=== PATIENT | male | born 1935 | race African-American/Black ===

== ENCOUNTER 2021-01-04 17:03 | Inpatient (IN) | payer OTHER ==
[~2021-01-04] VITALS: Ht 152.4 cm; Wt 66.2 kg
[~2021-01-04 17:03] MED LIST: ASPIR 8181 MG PO; CARDURA4 MG PO; FOLIC ACID1 MG PO; METFORMIN HCL500 MG PO; METHOTREXATE 22.5 MG PO; NEURONTIN600 MG PO; PLAVIX 75 MG TA75 M1 PO; SIMVASTATIN40 MG PO; ZOFRAN ODT4 MG PO
[2021-01-04 17:30] VITALS: BP 123/59
[2021-01-04] MEDS ORDERED: COSENTYX P150 MG/11 PO (18:37)
[2021-01-04 18:49] LABS: HEMATOCRIT 37.6 % (42.0-52.0); HEMOGLOBIN 12.5 gm/dL (14.0-18.0); MCH 32.3 pg (26.0-34.0); MCHC 33.3 g/dL (28.0-37.0); MCV 97.2 fL (80.0-100.0); PLATELET COUNT 200 thou/uL (150-400); RBC 3.87 mil/uL (4.50-6.00); RDW 13.5 % (10.5-14.5); WBC 10.1 thou/uL (4.0-11.0)
[2021-01-04 18:55] LABS: ANION GAP 7 mmol/L (7-16); BUN 16 mg/dL (7-18); CALCIUM 8.6 mg/dL (8.5-10.1); CHLORIDE 107 mmol/L (98-107); CO2 27 mmol/L (21-32); CREATININE 1.2 mg/dL (0.7-1.3); GLUCOSE 98 mg/dL (74-106); POTASSIUM 4.4 mmol/L (3.5-5.1); SODIUM 141 mmol/L (136-145)
[2021-01-04 19:05] LABS: ALBUMIN 3.7 g/dL (3.4-5.0); SGOT 26 U/L (15-37); SGPT 28 U/L (16-63); TOTAL BILIRUBIN 0.6 mg/dL (0.2-1.0); TOTAL PROTEIN 7.3 g/dL (6.4-8.2); TROPONIN-I <0.06 ng/mL (<0.06)
[2021-01-04 19:06] LABS: ABSOLUTE NEUTROPHILS 4.6 thou/uL (1.4-8.2)
[2021-01-04 19:26] LABS: APTT 23.6 Seconds (24.5-32.8); INR 1.1; PROTIME 11.9 Seconds (10.5-12.1)
[2021-01-04 21:27] VITALS: BP 155/95
[2021-01-04 22:15] VITALS: BP 153/86
[2021-01-04 22:22] VITALS: BP 166/93
[2021-01-05 03:35] VITALS: BP 127/65
[2021-01-05 06:04] LABS: CHOLESTEROL 120 mg/dL (<200); HDL CHOLESTEROL 29 mg/dL (>40); LDL CHOLESTEROL 72 mg/dL (<100); TC:HDL 4.1 Ratio (Not establshd); TRIGLYCERIDE 97 mg/dL (<150); VLDL 19 mg/dL (<40)
[2021-01-05 06:05] LABS: SERUM ASSESSMENT Clear
[2021-01-05 07:09] LABS: GLYCOHEMOGLOBIN (HGB A1C) 5.3 % (4.8-5.6)
--- NOTE | 2021-01-05 07:18 | EKG ---
[address] [address] ELECTROCARDIOGRAM REPORT Name: LIANET COTA Tony Room #: 364-P ADM IN M.R.#: [id number] Admission: 01/04/21 Attend Phys: Miguel Davalos MD Discharge: Date of : 36 Report #: [id number] [facility] ED Test Date: 2021-01-04 Test Time: 17:08:27 Pat Name: LIANET COTA Department: Room: 364 Gender: M Supervisor Building Maintenance: : 1935 Requested By: Pradip Jimenez Order Number: [id number] MD: Claudio Mascorro Measurements Intervals [place] Rate: 75 P: 52 AR: 170 QRS: -6 QRSD: 86 T: 45 QT: 381 QTc: 426 Interpretive Statements Sinus rhythm Abnormal R-wave progression, early transition Compared to ECG 11/26/2015 22:07:22 No significant changes Electronically Signed On 01-05-2021 7:18:18 CDT by Claudio Mascorro [email or web address] <ELECTRONICALLY SIGNED> By: Claudio Mascorro MD, [facility] 01/05/21717 07 07 Claudio Mascorro MD, FACC /EPI
--- NOTE | 2021-01-05 07:29 | NUR ---
ADMIT PT ADMITTED TO ROOM 364 FOR TIA NIH SCORE OF 1 PT A/O X4 NO SKIN ISSUES NOTED UP WITH SBA DEFECT REPAIRER GLASSWARE EQUAL GAIT STEADY PT STATES HE STILL FEELS A LITTLE WEK . ADMITTED FOR FURTHER DIAGNOTICS FOR CAROTID PLAQUES.
[2021-01-05 08:20] VITALS: BP 129/64
--- NOTE | 2021-01-05 09:28 | NUR ---
85-year-old male who presented to the emergency department on the evening of 01-04-21 with complaints of an episode of left hand shaking and weakness to where he could not hold up a water bottle or coffee cup prior in the day. He reports he has a past medical history of a bad spine, arthritis, peripheral artery disease, BPH, hyperlipidemia. In the emergency department he had a CT of his head which was negative for any acute abnormalities. He has been admitted to the hospital with a neurology consult as the patient also reports progressive Lower Extremity weakness in the past few weeks. The patient currently resides by himself and lists son Guy Izquierdo [phone] as his DPOA. Patient in admission history notes having received both does of Moderna COVID 19 vaccine. Attempted to reach son and DPOA at [phone] without success. Also reached out to Nephanusha Riley at [phone] without success. CM will follow MD direction along with therapy recommendations for discharge needs once stablished the plan of care.
--- NOTE | 2021-01-05 10:45 | NUR ---
CARE ASSUMED THIS AM, PT ALERT AND ORIENTED X4, DENIES CHEST PAIN, NUMBNESS AND TINGLING. PT DENIES ANY WEAKNESS IN BILATERAAL EXTREMITIES. UP TO BATHROOM STAND BY. UP IN CHAIR STEVEN, DENIES ANY NEEDS RN. WILL CONTINUE TO MONITOR.
[2021-01-05 15:31] VITALS: BP 116/61
[2021-01-05 20:20] VITALS: BP 125/67
[2021-01-06 05:22] VITALS: BP 149/89
--- NOTE | 2021-01-06 07:07 | EKG ---
[address] [address] ELECTROCARDIOGRAM REPORT Name: LIANET COTA Tony Room #: 364-P ADM IN M.R.#: [id number] Admission: 01/04/21 Attend Phys: Miguel Davalos MD Discharge: Date of : 36 Report #: [id number] [facility] ED Test Date: 2021-01-04 Test Time: 21:38:59 Pat Name: LIANET COTA Department: Room: 364 P Gender: M Engineer Chief: COURT : 1935 Requested By: Pradip Jimenez Order Number: [id number] MD: Claudio Mascorro Measurements Intervals [place] Rate: 71 P: 43 IA: 223 QRS: -16 QRSD: 91 T: 41 QT: 389 QTc: 423 Interpretive Statements Sinus rhythm Prolonged IA interval Borderline left axis deviation Abnormal R-wave progression, early transition Compared to ECG 01/04/2021 17:08:27 First degree AV block now present Electronically Signed On 01-06-2021 7:07:43 CDT by Claudio Mascorro [email or web address] <ELECTRONICALLY SIGNED> By: Claudio Mascorro MD, [facility] 01/06/2107 37 37 Claudio Mascorro MD, [facility] /EPI
--- NOTE | 2021-01-06 08:19 | NUR ---
PROGRESS PT A/O X4 UP AD FRANCO TELE INTACT VSS, ON ROOM AIR PT DENIES PAIN OR ANY OTHER NEED HOPES TO DISCHARGE HOME IN AM.
[2021-01-06 09:16] VITALS: BP 144/61
--- NOTE | 2021-01-06 09:16 | HC ---
[facility] [place] [address] CONSULTATION Name: LIANET COTA Room #: 364-P ADM IN M.R.#: [id number] Admission: 01/04/21 Attend Phys: Carlos Alberto Kaur MD Discharge: Date of : 36 Report #: [id number] THIS REPORT FOR: cc: FAM - Family physician unknown FAM - Family physician unknown Adrian Sloan MD ~ DOC #: [id number] Adrian Sloan MD DATE OF SERVICE: 01/05/2021 HISTORY OF PRESENT ILLNESS: This is an 85-year-old complicated patient who was admitted with an episode of the left-sided weakness. The patient is not a very good historian. He definitely had the weakness on the left side. He could not pear picker even a bottle of water. When I asked him, face and left lower extremity was also involved at the same time. He thinks about it for a long time and he says it was not. He did not have any headache associated with it. He has a known spinal stenosis. He follows up with the physicians for that. He was recommended to have surgery done, but he declined surgery. He said he is not going to have surgery done in the spine, does not matter what. He attributed these symptoms to the spine. He feels back to the baseline, but later on examination, he still appeared to have some subtle deficit, but it is difficult to tell how much is old and how much is new. REVIEW OF SYSTEMS: Indicate that he says that he does have peripheral vascular disease. He had shunt. 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 He said he used to be on anticoagulation, but is not on anticoagulation now. He was on methotrexate. He said that was for rheumatoid arthritis. He is not on methotrexate anymore, but presently he takes some shots. His zipper trimmer hand is also at and I do not have any records from there. He denies that he is a diabetic. In fact, presently he is not complaining of any eye, ENT, cardiac, respiratory, GI, , psychiatric, throat, allergic, hematological, dermatological symptom associated with present symptomatology. He thinks his symptoms have resolved, but he still appeared to be weak on the left side, although subtle weakness. PAST MEDICAL HISTORY: Positive for rheumatoid arthritis, peripheral vascular disease requiring shunt, but is negative for any stroke. He has spinal stenosis. FAMILY HISTORY: Negative for any early age stroke. SOCIAL HISTORY: He says he does not drink any alcohol. Presently, he does not smoke either. PHYSICAL EXAMINATION: Indicate that he talks slowly, but ultimately does give [facility] [address] [place] [address] CONSULTATION Name: LIANET COTA Room #: 364-P [facility] IN M.R.#: [id number] Admission: 01/04/21 Attend Phys: Carlos Alberto Kaur MD Discharge: Date of : 36 Report #: [id number] you answer. He was able to tell me what month and what date today is and what hospital he is in, but he did it very slowly. His answers are not definite and somewhat tenuous. His speech looks intact. His fund of knowledge and memory look intact. Cranial nerve examination II-XII on my examination does not show any abnormality. He does not appear to have any hemianopsia and he does not appear to be having any facial asymmetry, the best I can tell. He does appear to be still somewhat weak in the left hand scraper, but the difference is subtle and difficult to tell whether it is because of his preexisting spine problem or any stroke, which he may have had. His reflexes could not be elicited in the lower extremities, but he says he can feel and he did pretty well with the position sense. His both plantars are mute. He has walking difficulty, but that is going on for some time the best I can tell. He does not have any finger to nose, but his fundus could not be visualized. He is a reasonably well developed individual. He does not appear to have any dysmorphic features of eyes, ears and face. His hearing and vision looks adequate. I could not feel his pulses in the lower extremities. His cardiac examination appear unremarkable. No respiratory difficulty was noticed. He has no edema, cyanosis or jaundice. There is no thyroid mass or carotid bruit. VITAL SIGNS: His blood pressure is 129/64, respirations 18, pulse is 73 and his temperature is 97.5. LABORATORY DATA: Indicate a normal white count. IMPRESSION AND PLAN: Difficult patient to evaluate because there are multiple pathologies which may be contributing to this patient's symptoms and it is difficult to separate one from another. He has a preexisting cervical spinal stenosis and his reflexes are absent in the lower extremities indicating that he may have peripheral neuropathy. The episode he had was probably TIA. I cannot exclude the possibility of a stroke and I cannot exclude that is spinal stenosis and it is not causing these symptoms. He was on aspirin when this episode occurred. He is declining any surgery. So we have given him a loading dose of Plavix to see if he can be on a combination of aspirin and Plavix, but this patient may need some emergent surgery because of his cervical spine stenosis and we should give him Plavix only if it is definitely indicated. I discussed his options with him. We will get an MRI of the brain done. MRI of the brain needs to be approved before we can do it and if it is approved, we will see if it shows any stroke. If it does show a stroke, then I will favor giving him a combination of aspirin and Plavix for 21 days, but then subsequently switching to full dose of aspirin. If MRI does not show any stroke, then I think the better thing to do on him will be give him a full dose of aspirin. I again asked him about management of the cervical spinal stenosis. [facility] [address] [place] [address] CONSULTATION Name: LIANET COTA Room #: 364-P ADM IN [facility].#: [id number] Admission: 01/04/21 Attend Phys: Carlos Alberto Kaur MD Discharge: Date of : 36 Report #: [id number] He again declined any intervention and does not want spine surgeon to be consulted in this hospital because he said he will not have surgery done. Thank you very much for this referral and if you have any questions, please feel free to contact me. Addendum. This addendum is being added at the time of signing this note. The patient's MRI was not appoved by DAMAGE APPRAISER. I came back and talked to the patient again and discussed his options in that regard. Presently I think the best will be to continue his aspirin. If he wants to have an MRI of the brain that can be scheduled as an outpatient and he can follow-up with us.I am reluctant to start the patient on Plavix because the diagnosis of high risk TIA is not certain and if the patient does need an emergent surgery on his cervical spine it will delay it if he is on Plavix. I have discussed his options in that regard. I had also called esterday who was The hospitalist yesterday. I discussed the patient with him and I will sign off MD NANDA Carson/EMMANUEL <ELECTRONICALLY SIGNED> By: Adrian Sloan MD 01/06/21915 1010 17 Adrian Sloan MD /nt
--- NOTE | 2021-01-06 11:55 | NUR ---
Case discussed with the care team. Dc home today with no needs. Pt has been cleared by neuro, PT and OT. He is up ad anastasia and steady on his feet. Outpt f/u with his pcp and specialist at with outpt MRI recommended. No cm interventions indicated at this time.
--- NOTE | 2021-01-06 14:16 | 2DMMODE ---
[facility] [place] [address] 2 D/M-MODE ECHOCARDIOGRAM Name: LIANET COTA Room #: 364-P ADM IN M.R.#: [id number] Admission: 01/04/21 Attend Phys: Carlos Alberto Kaur MD Discharge: Date of : 36 Report #: [id number] THIS REPORT FOR: cc: FAM - Family physician unknown FAM - Family physician unknown Abdiaziz Mason MD ~ APPROVED REPORT Study performed: 01/06/2021 13:11:06 EXAM: Comprehensive 2D, Doppler, and color-flow Echocardiogram Patient Location: In-Patient Room #: 364 BSA: 1.81 HR: 84 bpm BP: 149/89 mmHg Rhythm: NSR Other Information Study Quality: Good Risk Factors: Cardiac Risk Factors: HTN Indications Hypertension/HDD Echo Enhancing Agent Indication: Rule Out Septal Defect Agent(s) / Amount(s) Used: Agitated Saline 10 cc 2D Dimensions RVDd: 27.10 mm IVSd: 12.61 (7-11mm) LVOT Diam: 22.49 (18-24mm) LVDd: 32.38 mm PWd: 10.55 (7-11mm) Ascending Ao: 32.83 (22-36mm) LVDs: 24.49 (25-40mm) Left Atrium: 36.32 (27-40mm) Aortic Root: 31.01 mm Volumes Left Atrial Volume (Systole) Single Plane 4CH: 26.64 mL Single Plane 2CH: 28.[address] [facility] [place] [address] [place] [address] 2 D/M-MODE ECHOCARDIOGRAM Name: COTAFAYE JohnBev Jimenez Room #: 364-P [facility] IN .R.#: [id number] Admission: 01/04/21 Attend Phys: Carlos Alberto Kaur MD Discharge: Date of : 36 Report #: [id number] Biplane LA Volume: 31.00 mL LA ESV Index: 17.00 mL/m2 Aortic Valve AoV Peak Tenzin.: 0.94 m/s AO Peak Gr.: 3.51 mmHg LVOT Max P.71 mmHg LVOT Max V: 0.82 m/s PRETTY Vmax: 3.49 cm2 AI Vmax: 1.69 m/s AI Beauregard: 0.83 m/s2 AI PHT: 631.83 ms Mitral Valve E/A Ratio: 0.5 MV Decel. Time: 167.78 ms MV E Max Tenzin.: 0.56 m/s MV A Tenzin.: 1.03 m/s MV PHT: 48.65 ms MVA (PHT): 3.36 cm2 IVRT: 46.14 ms Pulmonary Valve PV Peak Tenzin.: 1.05 m/s PV Peak Gr.: 4.37 mmHg Pulmonary Vein P Vein S: 0.41 m/s P Vein A: 0.33 m/s P Vein D: 0.23 m/s P Vein A Dur.: 124.6 msec P Vein S/D Ratio: 1.78 Tricuspid Valve TR Peak Tenzin.: 2.42 m/s RAP Estimate: 7.00 mmHg TR Peak Gr.: 23.52 mmHg RVSP: 30.00 mmHg Left Ventricle The left ventricle is normal size. There is normal LV segmental wall motion. There is normal left ventricular wall thickness. The left ventricular systolic function is normal. The left ventricular ejection fraction is within the normal range. LVEF is 50-55%. Transmitral Doppler flow pattern suggests impaired LV relaxation. Right Ventricle The right ventricle is normal size. The right ventricular systolic function is normal. Atria The left atrium size is normal. Prominent Eustachian valve is noted [place] [id number] 2 D/M-MODE ECHOCARDIOGRAM Name: LIANET COTA Room #: 364-P [facility] IN [facility]#: [id number] Admission: 01/04/21 Attend Phys: Carlos Alberto Kaur MD Discharge: Date of : 36 Report #: [id number] in the right atrium. Aortic Valve The aortic valve is normal in structure. Mild aortic regurgitation. There is no aortic valvular stenosis. Mitral Valve The mitral valve is normal in structure. Trace to mild mitral regurgitation. No evidence of mitral valve stenosis. Tricuspid Valve The tricuspid valve is normal in structure. Mild tricuspid regurgitation. Pulmonic Valve The pulmonary valve is normal in structure. There is no pulmonic valvular regurgitation. Great Vessels The aortic root is normal in size. IVC is normal in size and collapses >50% with inspiration. Pericardium There is no pericardial effusion. There is no pleural effusion. <Conclusion> The left ventricle is normal size. There is normal LV segmental wall motion. LVEF is 50-55%. The right ventricle is normal size. Prominent Eustachian valve versus Chiari network noted in the right atrium. The aortic valve is normal in structure. Mild aortic regurgitation. The mitral valve is normal in structure. Trace to mild mitral regurgitation. The tricuspid valve is normal in structure. Mild tricuspid regurgitation. The pulmonary valve is normal in structure. The aortic root is normal in size. There is no pericardial effusion. [address] [address] 2 D/M-MODE ECHOCARDIOGRAM Name: LIANET COTA Room #: 364-P [facility] IN ..#: [id number] Admission: 01/04/21 Attend Phys: Carlos Alberto Kaur MD Discharge: Date of : 36 Report #: [id number] Intra-atrial septum and fossa ovale mildly redundant without presence of clot <ELECTRONICALLY SIGNED> By: Abdiaziz Mason MD 01/06/21 1416 1416 1416 Abdiaziz Mason MD /INF
[2021-01-06 14:32] VITALS: BP 144/61
--- NOTE | 2021-01-06 14:36 | NUR ---
care taken over this am, pt alert and oriented x4, denies any chest pain, nausea and vomitting. on room air, no signs of distress. pt is contact iso for c-diff. Pt continous to have diarrhea,uses bed pain. was up to wheelchair for a couple hours with PT. Dialysis today. fall precautions in place, denies any needs michael. will continue
[2021-01-06 14:59] VITALS: BP 144/61
--- NOTE | 2021-01-11 12:02 | HC ---
[facility] [place] [address] CONSULTATION Name: LIANET COTA Room #: 364-P [facility] IN M.R.#: [id number] Admission: 01/04/21 Attend Phys: Carlos Alberto Kaur MD Discharge: 01/06/21 Date of : 36 Report #: [id number] THIS REPORT FOR: cc: FAM - Family physician unknown FAM - Family physician unknown Pradip Quevedo MD ~ DOC #: [id number] Pradip Quevedo MD DATE OF SERVICE: 01/05/2021 HISTORY OF PRESENT ILLNESS: The patient is an 85-year-old -[place] male admitted with left upper extremity weakness, shakiness, inability to hold up water bottle or coffee cup. CT of the head was negative. Workup revealed moderate to severe cervical spinal stenosis. His symptoms regarding the left upper extremity have resolved. Neurology is to evaluate. We are seeing him in rehabilitation medicine consultation. PAST MEDICAL HISTORY: Includes degenerative arthritis of the spine, history of peripheral arterial disease. MEDICATIONS: Please see the full medication listing. ALLERGIES: No known drug allergies. HABITS: Past history of 20-year history former smoker. No history of alcohol or recreational drug usage. SOCIAL HISTORY: Lives in a house alone 1 level 3 steps was premorbidly independent with ADLs and drives. REVIEW OF SYSTEMS: No current complaints of chest pain, shortness of breath or abdominal discomfort. He notes that his left upper extremity complaints have resolved. PHYSICAL EXAMINATION: GENERAL: This is a pleasant 85-year-old thin -[place] male, in no obvious distress. VITAL SIGNS: Last recorded temperature 36.4, pulse 73, respirations 18, blood pressure 129/64. The patient is alert and oriented. HEENT: Appeared to be benign. NEUROLOGIC: Cranial nerves are grossly intact. He has functional range of motion of his upper extremities. He does reasonably well with fine finger dexterity and [id number]. Lower extremities, no obvious focal weakness was noted. No calf swelling. Tone appeared to be intact. Functionally, he was seen by occupational therapy and is known to be independent with donning and doffing socks and also independent with opening packages. Occupational therapy [address] [address] CONSULTATION Name: LIANET COTA Tony Room #: 364-P [facility] IN M.R.#: [id number] Admission: 01/04/21 Attend Phys: Carlos Alberto Kaur MD Discharge: 01/06/21 Date of : 36 Report #: [id number] has actually discharged him from their services as they feel he is at his baseline. ASSESSMENT: 1. An 85-year-old -[place] male with left upper extremity weakness and shakiness, apparent transient ischemic attack, notes symptoms have improved/resolved. 2. Moderate to severe cervical spinal stenosis. 3. Peripheral arterial disease. 4. Past history of tobacco abuse. PLAN: Neurology is to see. Physical Therapy is to evaluate as well. Occupational Therapy has seen him and felt that he is at his baseline as he did well with independent donning and doffing socks and opening packages and Occupational Therapy has actually discharged him from their services. We will see how he does in physical therapy, but would anticipate that he should be able to return back to the home setting once his neurology workup is complete. I do not see that he warrants an acute [address] [place] [address] inpatient rehabilitation stay at this time. Thank you for asking us to assist in this patient's care. Pradip Quevedo MD DGS <ELECTRONICALLY SIGNED> By: Pradip Quevedo MD 01/11/21 1202 0902 [id number] Pradip Quevedo MD /nt
== END 2021-01-06 15:17 | disposition home or self-care (01) | DRG 552 ==
LOC: ER 17:03 → 3W 20:50 → EROBS 20:50 → 3W 22:11
PROVIDERS: Emergency Medicine; Nurse Practitioner Family; ADMIT Internal Medicine; ATTEND Internal Medicine
DX: M48.02 Spinal stenosis, cervical region (principal); G45.9 Transient cerebral ischemic attack, unspecified; M54.12 Radiculopathy, cervical region; I73.9 Peripheral vascular disease, unspecified; M06.9 Rheumatoid arthritis, unspecified; M47.892 Other spondylosis, cervical region; G31.9 Degenerative disease of nervous system, unspecified; N40.0 Benign prostatic hyperplasia without lower urinary tract symptoms; E78.5 Hyperlipidemia, unspecified; R53.81 Other malaise; Z60.2 Problems related to living alone; Z87.891 Personal history of nicotine dependence; Z79.899 Other long term (current) drug therapy
CPT/HCPCS: 10879